=== PATIENT | male | born 2000 | race Caucasian/White ===

== ENCOUNTER 2021-04-02 00:44 | Emergency (ER) | payer SELFPAY ==
[~2021-04-02] VITALS: Ht 180.3 cm; Wt 109.0 kg
[2021-04-02] MEDS ORDERED: NALOXONE HCL 0.4 MG/ML 1ML VIAL IM ONE (02:00)
[2021-04-02] MEDS ORDERED: NALO4SPR BOTHNSTRLS (02:49)
[2021-04-02 03:50] VITALS: BP 126/82
== END 2021-04-02 03:58 | disposition home or self-care (01) ==
LOC: EDBD 00:44 → ER 00:44
DX: T40.2X1A Poisoning by other opioids, accidental (unintentional), initial encounter (principal); R09.2 Respiratory arrest; G40.909 Epilepsy, unspecified, not intractable, without status epilepticus; Y92.098 Other place in other non-institutional residence as the place of occurrence of the external cause
CPT/HCPCS: 93005; 96372; 99283; J2310

== ENCOUNTER 2023-06-08 16:30 | Emergency (ER) | payer MEDICAID, OTHER ==
[~2023-06-08] VITALS: Ht 182.9 cm; Wt 100.0 kg
[~2023-06-08 16:30] MED LIST: NALO4SPR BOTHNSTRLS
[2023-06-08 16:34] VITALS: O2SAT 99
[2023-06-08] MEDS ORDERED: NALO4SPR BOTHNSTRLS (19:48)
[2023-06-08 19:54] VITALS: BP 145/91; PULSE 87; RESP 18; TEMP 97
== END 2023-06-08 19:54 | disposition home or self-care (01) ==
LOC: ER 16:30
DX: T40.2X1A Poisoning by other opioids, accidental (unintentional), initial encounter (principal); Y92.9 Unspecified place or not applicable; Z68.29 Body mass index [BMI] 29.0-29.9, adult
CPT/HCPCS: 99283

== ENCOUNTER 2023-10-28 16:27 | Emergency (ER) | payer MEDICAID ==
[~2023-10-28] VITALS: Ht 170.2 cm; Wt 91.0 kg
[2023-10-28 16:33] VITALS: O2SAT 99
[2023-10-28] MEDS: KETOROLAC 30MG/ML VIAL IV STA (17:20)
[2023-10-28] MEDS: SODIUM CHLORIDE 0.9% 1,000 ML IV ONE (17:20)
[2023-10-28 17:30] LABS: BASOPHILS % 0.4 % (0.0-2.0); EOSINOPHILS % 2.8 % (0.0-5.0); HEMATOCRIT. 36.8 % (42.0-52.0); HEMOGLOBIN. 12.3 g/dL (14.0-18.0); LYMPHOCYTES % 12.6 % (20.0-50.0); MEAN CORPUSCULAR HEMOGLOBIN 27.9 pg (28.0-32.0); MEAN CORPUSCULAR HGB CONC 33.4 g/dL (31.0-37.0); MEAN CORPUSCULAR VOLUME 83.6 fL (80.0-94.0); MEAN PLATELET VOLUME 6.7 fl (7.4-10.4); MONOCYTES % 8.8 % (2.0-8.0); NEUTROPHILS % 75.4 % (40.0-76.0); PLATELET 211 x1000/uL (130-400); RED CELL DISTRIBUTION WIDTH 14.7 % (11.6-14.6); WHITE BLOOD COUNT 9.1 x1000/uL (4.5-11.0)
[2023-10-28 17:52] LABS: ACETAMINOPHEN < 2 ug/mL (10-30); ALANINE AMINOTRANSFERASE 35 IU/L (10-49); ALBUMIN 4.1 g/dL (3.2-4.8); ASPARTATE AMINOTRANSFERASE 47 IU/L (<34); BILIRUBIN TOTAL 0.6 mg/dL (0.1-1.0); CALCIUM 8.1 mg/dL (8.7-10.4); CARBON DIOXIDE 28 mEq/L (21-32); CHLORIDE 106 mEq/L (98-107); CREATININE 0.6 mg/dL (0.6-1.3); ETHANOL BLOOD < 10 mg/dL (<10); GLUCOSE 70 mg/dL (70-105); POTASSIUM 3.9 mEq/L (3.5-5.1); PROTEIN TOTAL 6.2 g/dL (6.0-8.3); SODIUM 140 mEq/L (136-145); UREA NITROGEN BLOOD 12 mg/dL (9-23)
[2023-10-28] MEDS ORDERED: IBUP-2028 MT (18:46)
[2023-10-28] MEDS ORDERED: NALO4SPR BOTHNSTRLS (18:46)
[2023-10-28 19:50] VITALS: BP 128/81; PULSE 88; RESP 20; TEMP 98.3
== END 2023-10-28 20:43 ==
LOC: ER 16:53
DX: T40.601A Poisoning by unspecified narcotics, accidental (unintentional), initial encounter (principal); F12.10 Cannabis abuse, uncomplicated; M54.9 Dorsalgia, unspecified; X58.XXXA Exposure to other specified factors, initial encounter
CPT/HCPCS: 80053; 80307; 80329; 80320; 85025; 36415; 72100; 96361; 96374; 99284; J1885; J7030; G0480

== ENCOUNTER 2025-08-15 18:04 | Emergency (ER) | payer MEDICAID ==
[~2025-08-15] VITALS: Ht 180.3 cm; Wt 84.0 kg
[~2025-08-15 18:04] MED LIST changes: +IBUP-2028 MT; +NAPR-681 MT; +TAMS-54 MT
[2025-08-15 18:11] VITALS: O2SAT 99
[2025-08-15 20:17] VITALS: BP 101/65; PULSE 75; RESP 18; TEMP 36.7; O2SAT 99
== END 2025-08-15 20:49 | disposition home or self-care (01) ==
LOC: ER 18:04
DX: T40.601A Poisoning by unspecified narcotics, accidental (unintentional), initial encounter (principal); F17.200 Nicotine dependence, unspecified, uncomplicated; Z82.49 Family history of ischemic heart disease and other diseases of the circulatory system; Z79.899 Other long term (current) drug therapy; Y92.89 Other specified places as the place of occurrence of the external cause
CPT/HCPCS: 82962; 99283